=== PATIENT | male | born 1975 | race Caucasian/White ===

== ENCOUNTER 2019-03-29 21:29 | Emergency (ER) | payer MEDICARE, MEDICAID ==
[~2019-03-29] VITALS: Ht 172.7 cm; Wt 84.1 kg
[2019-03-29 22:12] VITALS: BP 119/65
== END 2019-03-29 22:13 | disposition home or self-care (01) ==
LOC: ER 21:29
DX: T42.6X1A Poisoning by other antiepileptic and sedative-hypnotic drugs, accidental (unintentional), initial encounter (principal); T46.6X1A Poisoning by antihyperlipidemic and antiarteriosclerotic drugs, accidental (unintentional), initial encounter; T45.2X1A Poisoning by vitamins, accidental (unintentional), initial encounter; T44.3X1A Poisoning by other parasympatholytics [anticholinergics and antimuscarinics] and spasmolytics, accidental (unintentional), initial encounter; Z86.69 Personal history of other diseases of the nervous system and sense organs; Y92.89 Other specified places as the place of occurrence of the external cause
CPT/HCPCS: 99281

== ENCOUNTER 2021-10-27 09:49 | Emergency (ER) | payer MEDICARE, MEDICAID ==
[~2021-10-27] VITALS: Ht 172.7 cm; Wt 76.4 kg
[2021-10-27 12:17] VITALS: BP 106/71
== END 2021-10-27 12:46 | disposition home or self-care (01) ==
LOC: ER 09:49
DX: R04.0 Epistaxis (principal); W19.XXXA Unspecified fall, initial encounter; Y93.89 Activity, other specified; Y92.89 Other specified places as the place of occurrence of the external cause; Y99.8 Other external cause status
CPT/HCPCS: 99281

== ENCOUNTER 2024-12-02 11:35 | Emergency (ER) | payer MEDICARE, MEDICAID ==
[~2024-12-02] VITALS: Ht 172.7 cm; Wt 83.8 kg
[2024-12-02 11:57] VITALS: BP 102/68; PULSE 81; RESP 16; TEMP 97.7; O2SAT 96
--- NOTE | 2024-12-02 13:18 | Physician Documentation ---
History of Present Illness ~ Chief Complaint: Eye Pain Stated Complaint: EYE PAIN Time Seen by MD: 12:03 OK to notify your PCP?: Yes Source: patient Mode of Arrival: POV Exam Limitations: no limitations HPI 49-year-old disabled male presents with his caregiver from a [facility] for redness under his right eye which is sore. This was noticed yesterday and the caregiver reports that the swelling has gone down some. No medications were gi brunilda prior to arrival for symptoms. Medication Reconciliation Allergies: Coded Allergies: No Known Allergies (Unverified , 12/02/24) Past Medical History Past Medical History: Seizures, *PSYCH* Drug Use: none Lives with: Other Lives In: Home Review of Systems All Other Systems at this time: Reviewed and Negative Physical Exam Vital Signs: RN Vital Signs have been reviewed: Yes, Temperature: 97.7, Source: Temporal, Heart Rate: 81, Respiratory Rate: 16, BP: 102/68, Pulse Oximetry: 96, Weight: 83.800 Oxygen Flow Rate: 0 Pulse Oximetry Reflects: adequate oxygenation Physical Exam General: Alert, no apparent distress. HEENT: PERRL, EOMI, no injection, moist mucous membranes. Neck: Full range of motion. Respiratory: Lungs clear, no respiratory distress. Chest: No accessory muscle use. Cardiovascular: Regular rate and rhythm, no murmurs. Gastrointestinal: Soft, nontender, nondistended. Bowels sounds present. Extremities: Normal range of motion, no deformity. Neurologic: Oriented x4. Psychiatric: Normal mood and affect. Skin: Normal color, warm and dry. Trace edema approx 1cm below under right eye with some slight erythema in the crease of lower periorbital skin, skin intact. 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 Upon palpation he states it is tender. The rest of his physical exam is unremarkable. We discussed with the caregiver that he can take Tylenol or ibuprofen if he is having discomfort but as long as the swelling is going down there was no signs of infection at this time. He is given follow up and return instructions. Eye Diff. Dx: Considerations: Include: [place], Conjuctivits-allergic, Conjuctivitis-bacterial, Conjuctivits-chlamydial, Conjuctivitis-viral, Hordeolum, Orbital cellulitis, Periobital cellulitis Departure Disposition: HOME / SELF CARE / HOMELESS Impression: Primary Impression: Swelling of right lower eyelid Condition: Stable Discharge Instructions: General Discharge Instructions Additional Instructions: Follow up with the primary care provider if this does not improve over the next 3 days, return back here for any new or worsening symptoms. He can use Tylenol and/or ibuprofen [id number] to help if this is painful. Referrals: NO PRIMARY CARE PROVIDER (PCP) Education Educated: Patient Educated regarding: diagnosis, treatment, prognosis, need for follow up Additional Comment Medical Screen Exam This patient recieved a medical screening examination. After reviewing the individual's medical complaints with presenting symptoms and performing an appropriate physical examination, it was determined that no immediate life- threatening emergency medical condition is present. This individual is also not a women having contractions. Signature Scribe Signature: . Attestation: Scribed for Evelyn Liu Animal Husbandman by Evelyn Jeter NP . 12/02/24 17:58 Parts of this note were created using [employer] voice recognition software program. While efforts were made to correct any mistakes made by this voice recognition software program, nonsensical phrases may remain in this note. In addition, there may be errors and syntax, grammar, content and spelling. EVELYN LIUP Dec 02, 2024 13:18
== END 2024-12-02 13:41 | disposition home or self-care (01) ==
LOC: ER 11:35
DX: H02.842 Edema of right lower eyelid (principal)
CPT/HCPCS: 99282